=== PATIENT | male | born 1955 | race Caucasian/White ===

== ENCOUNTER 2018-09-19 12:01 | Inpatient (IN) ==
[2018-09-19] MEDS ORDERED: NS 1,000 ML ONE (12:05)
[2018-09-19 12:07] LABS: ALLEN TEST NO; BE -10.1 mmoll (-3.0-3.0); BLOOD TYPE ARTERIAL; METHB 1.2 % (0.0-1.5); O2HB 95.3 % (95.0-99.0); PCO2(98.6) 40 mmHg (35-45); PO2(98.6) 114 mmHg (60-100); SAMPLE BLOOD; SAO2 98.8 % (95.0-100.0); THB 10.3 g/dL (11.5-17.4); pH(98.6) 7.23 (7.35-7.45)
[2018-09-19 12:08] LABS: MODALITY NRB
[2018-09-19] MEDS ORDERED: LR 1,000 ML ONE (12:09)
[2018-09-19] MEDS ORDERED: LR 1,000 ML IV ONE (12:11)
[2018-09-19] MEDS ORDERED: NS 1,000 ML IV ONE ×2 (12:13→15:18)
[2018-09-19] MEDS ORDERED: SODIUM BICARBONATE 8.4% IV ONE (12:13)
[2018-09-19] MEDS ORDERED: SODIUM CHLORIDE 0.9% INJ ONE ×2 (12:14→15:57)
[2018-09-19] MEDS ORDERED: SOLU-MEDROL IV ONE (12:14)
[2018-09-19] MEDS ORDERED: PROTONIX IV ONE ×2 (12:14→15:57)
[2018-09-19] MEDS ORDERED: ZOFRAN IV ONE (12:14)
[2018-09-19] MEDS ORDERED: ROCEPHIN 1 GM in NS 50 ML IV ONE (12:14)
[2018-09-19 12:39] LABS: INR 0.99; PROTIME 13.9 Seconds (11.0-16.0)
[2018-09-19 12:41] LABS: BASO# 0.01 X1000 (0.0-0.2); BASO% 0.2 % (0.0-0.8); HEMATOCRIT 32.1 % (42.0-52.0); HEMOGLOBIN 10.1 g/dL (14.0-18.0); IMM GRAN# 0.03 X1000 (0.0-0.04); IMM GRAN% 0.5 % (0.0-0.5); LYMPH# 1.15 X1000 (1.2-3.4); LYMPH% 19.9 % (20.5-51.1); MCH 32.1 PG (27-31); MCHC 31.5 g/dL (33-37); MCV 101.9 FL (81-99); MONO# 0.63 X1000 (0.11-0.59); MONO% 10.9 % (1.7-9.3); MPV 9.5 FL (7.4-10.4); NEUT# 3.95 X1000 (1.4-6.5); NEUT% 68.5 % (42.2-75.2); PLT 314 X1000 (130-400); RBC 3.15 XMIL (4.7-6.1); RDW 15.2 % (11.5-14.5); WBC 5.77 X1000 (4.8-10.8)
[2018-09-19 12:58] LABS: ALB/GLOB RATIO 0.5; ALBUMIN 2.4 g/dL (3.5-5.0); CALCIUM 9.6 mg/dL (8.8-10.2); CREATININE 3.2 mg/dL (0.7-1.2); POTASSIUM 4.4 mmol/L (3.5-5.1); TOTAL BILIRUBIN 1.09 mg/dL (0.20-1.00); TOTAL PROTEIN 6.8 g/dL (6.3-8.3)
[2018-09-19 13:17] LABS: MAGNESIUM 7.6 mg/dL (1.5-2.7)
[2018-09-19] MEDS ORDERED: QUELICIN IV ONE (13:27)
[2018-09-19] MEDS ORDERED: AMIDATE IV ONE (13:27)
[2018-09-19] MEDS ORDERED: QUELICIN ONE (13:30)
[2018-09-19] MEDS ORDERED: AMIDATE ONE (13:30)
[2018-09-19] MEDS: LEVOPHED 8 MG in D5 1/2 NS 250 ML IV SCH ×3 (13:47→22:56)
[2018-09-19 13:49] LABS: URINE SOURCE CLEAN CATCH
[2018-09-19 13:52] LABS: BILIRUBIN URINE NEGATIVE (NEGATIVE); BLOOD URINE TRACE (NEGATIVE); COLOR YELLOW; GLUCOSE URINE NEGATIVE (NEGATIVE); KETONE URINE NEGATIVE (NEGATIVE); LEUKOCYTES URINE NEGATIVE (NEGATIVE); NITRITE URINE NEGATIVE (NEGATIVE); PH URINE 5.5; PROTEIN URINE TRACE mg/dL (NEGATIVE); SP GRAVITY URINE 1.018; TURBIDITY URINE CLEAR (CLEAR); UR EPITHELIAL CELLS <10 /HPF (<10); URINE BACTERIA NEGATIVE /HPF; URINE RBC <10 /HPF (<10); URINE WBC <10 /HPF (<10); UROBILINOGEN URINE 3 mg/dL (NORMAL)
--- NOTE | 2018-09-19 13:59 | EKG Report ---
Test Performed on : 09/19/2018 12:02:14 PM Test Reason : SPEPTIC Blood Pressure : / mmHG Vent. Rate : 093 BPM Atrial Rate : 093 BPM P-R Int : 166 ms QRS Dur : 102 ms QT Int : 372 ms P-R-T Axes : 038 026 041 degrees QTc Int : 462 ms Normal sinus rhythm. Normal ECG No previous ECGs available Unconfirmed Result
[2018-09-19] MEDS ORDERED: BENADRYL PO ONE (14:04)
--- NOTE | 2018-09-19 14:10 | Diag Imaging Result Doc PS360 ---
EXAM: CHEST/ABD TUBE PLACEMENT INDICATION: post intubation TECHNIQUE: One view COMPARISON: None. FINDINGS: The newly placed NG tube projects well below the diaphragm and is assumed to be in the lumen of the stomach in expected position. And ET tube is also identified. The tip projects over the trachea and above the deloris at about the T4 level. The lungs are overexposed due to focus on the NG tube. There are a few moderately gas-distended loops of colon noted. IMPRESSION: NG tube and ET tube in expected position as described. Electronically signed by Matt Gonzales 09/19/2018 2:08 PM
[2018-09-19 14:12] LABS: UR AMPHETAMINES QUAL PRESUMPTIVE POSITIVE (NONE DETECT); UR BARBITUATES QUAL NONE DETECTED (NONE DETECT); UR BENZODIAZEPIN QUAL NONE DETECTED (NONE DETECT); UR CANNABINOIDS QUAL PRESUMPTIVE POSITIVE (NONE DETECT); UR COCAINE QUAL NONE DETECTED (NONE DETECT); UR METHADONE QUAL NONE DETECTED (NONE DETECT); UR OPIATES QUAL PRESUMPTIVE POSITIVE (NONE DETECT); UR OXYCODONE QUAL NONE DETECTED (NONE DETECT); UR PCP QUAL NONE DETECTED (NONE DETECT)
[2018-09-19] MEDS ORDERED: SODIUM BICARBONATE 8.4% IV PUSH ONE (14:13)
[2018-09-19] MEDS ORDERED: BENADRYL IV ONE (14:54)
[2018-09-19] MEDS: NEO-SYNEPHRINE 50 MG in NS 250 ML IV SCH ×3 (15:16→22:56)
[2018-09-19] MEDS ORDERED: ATIVAN ONE (15:38)
[2018-09-19] MEDS ORDERED: ATIVAN IV ONE ×2 (15:57→17:42)
[2018-09-19] MEDS ORDERED: PITRESSIN 40 UNIT in NS 100 ML IV SCH (16:00)
[2018-09-19] MEDS ORDERED: PROTONIX 80 MG in NS 80 ML IV SCH (16:00)
--- NOTE | 2018-09-19 16:13 | Diag Imaging Result Doc PS360 ---
CHEST-PORTABLE - 09/19/2018 3:57 PM INDICATION: CVC placement COMPARISON: 1:59 PM FINDINGS: There is a new left subclavian central line in good position with the catheter tip at the confluence of the brachiocephalic veins. Stable endotracheal tube and nasogastric tube in good position. No new infiltrates. No pneumothorax or significant pleural effusion. IMPRESSION: No competition from support line or tube placement. Electronically signed by Jonnathan Ruffin 09/19/2018 4:11 PM
[2018-09-19] MEDS ORDERED: NS 250 ML ONE ×2 (17:20→17:25)
--- NOTE | 2018-09-19 17:44 | PROVIDER DOCUMENTATION ---
This chart was entered by Yanni Benitez Scribe, acting as scribe for Ronen Lopez MD. HPI-Critical Care - General Chief Complaint: Altered Mental Status Stated Complaint: UNRESPONSIVE Time Seen by Provider: 09/19/18 12:07 Patient arrived via EMS?: Yes Source: patient, family, EMS Unable to obtain history due to:: altered Allergies/Adverse Reactions: Allergies Allergy/AdvReac Type Severity Reaction Status Date / Time Unable to Assess Allergy Verified 09/19/18 13:30 - History of Present Illness-Critical Care Nature of Presenting Problem: per ems pt son called 911 due to pt being altered. pt had a large bottle of opened whiskey in his lap but family did not see him drink any. pt does have a s gómez smell of alcohol and feces about him. ems sts while on scenec speaking to pt he went unresponsive. pt has IO placed in RUE and NS was hung. pt has BGL 114. pt was incontinent of feces in a large amount. pt is unkempt. pt was placed on a nonrebreather @ 15LPM and o@ sat 87%. pt will moan with stimulated but does not answer questions. ems sts BP while enroute to hosp 58/38 98/58 42/30 pt when brought to ed was mildly responsive to pain and moans with palpation of abdomen. pt has BP 39/30 and is tachy 106 Location of Pain/Injury: reports: abdomen Quality of Pain: reports: fullness, sharp Severity in ED: reports: moderate Onset/Duration: reports: this morning Timing: reports: still present EMS Initial Findings:: confused, decreased respirations Pre-hospital Treatment: Initiated oxygen, Initiated BVM Associated Symptoms: reports: diarrhea, shortness of breath Loss of Consciousness: prolonged (minutes) Improves Condition (Modifying Factors): improves with: nothing Nitro Today/Relief: no nitro taken today Aspirin Treatment Today: no aspirin today Similar Symptoms Previously?: No Recently Seen Here or By Another Healthcare Provider: No Review of Systems - Adult - REVIEW OF SYSTEMS - ADULT ROS:: limited per condition Constitutional: denies: chills, fever Eyes: reports: no symptoms reported Ears, Nose, Mouth & Throat: reports: no symptoms reported Cardiovascular: denies: chest pain, palpitations Respiratory: denies: cough, shortness of breath, wheezing Gastrointestinal: reports: see HPI, abdominal pain, diarrhea Genitourinary: reports: see HPI, incontinence (fecal) Musculoskeletal: reports: no symptoms reported Integumentary: reports: no symptoms reported Neurological: reports: see HPI, other (moaning). denies: dizziness/vertigo, headache/migraines Psychiatric: reports: no symptoms reported Endocrine: reports: no symptoms reported Hematologic/Lymphatic: reports: no symptoms reported Allergic/Immunologic: reports: no symptoms reported All Other Systems: Reviewed and Negative Past History - Adult - PAST MEDICAL HISTORY-ADULT Review of Records: reports: Old Records Reviewed, Nursing Assessment Review, Medications Reviewed, Social history reviewed & non-contributory. Major Childhood Illnesses: reports: denies history Cardiovascular: reports: HTN Respiratory: reports: denies history Gastrointestinal: reports: denies history Genitourinary: reports: denies history Musculoskeletal: reports: denies history Hand Dominance: Right Handed Neurological: reports: denies history Endocrine/Immune: reports: denies history Other Conditions: reports: denies history - PRIOR SURGERIES/PROCEDURES Surgical/Procedure History: reports: reviewed, not pertinent - IMMUNIZATION STATUS Childhood Immunizations: See Nurse Assessment Flu Vaccine: See Nurse Assessment - FAMILY HISTORY Family History: reviewed, not pertinent - SOCIAL HISTORY Smoking: denies Substance Use: alcohol Alcohol Use Frequency: 5-6 times a week Living Situation: family Physical Exam-General - PHYSICAL EXAM-ADULT Initial Vital Signs Reviewed: Yes - CONSTITUTIONAL General Appearance: obese, slow to respond, obtunded - EYES Eyes: PERRL/EOMI. negative: pink conjunctivae - HEAD, EARS, NOSE, MOUTH & THROAT HENMT: negative: moist mucous membranes (dry) - NECK Neck: full range of motion, normal inspection - RESPIRATORY Respiratory: normal breath sounds - CARDIOVASCULAR Cardiovascular: normal peripheral pulses - GASTROINTESTINAL (ABDOMEN) Abdominal Exam: soft, distended, tenderness (moans with palpation) - LYMPHATIC Lymphatic: no adenopathy - MUSCULOSKELETAL Extremity: pelvis stable, other (IO @ rue bilateral 20 IV in hands) - SKIN Integumentary: warm/dry, pallor - PSYCHIATRIC Psych/Mental Status: other (confused and moans) Progress - PLAN OF CARE/RESULTS Progress/Plan/Lab Results: Vital Signs - 8 hr 09/19/18 12:06 09/19/18 12:20 09/19/18 12:28 Temperature 98.9 F Pulse Rate 95 H 99 H 98 H Respiratory Rate 13 22 29 H Blood Pressure 39/30 56/32 48/31 O2 Sat by Pulse Oximetry 93 L 94 L 92 L 09/19/18 12:38 09/19/18 12:42 09/19/18 12:47 Temperature Pulse Rate 93 H 93 H 89 Respiratory Rate 26 H 18 24 Blood Pressure 58/35 57/34 54/33 O2 Sat by Pulse Oximetry 90 L 09/19/18 12:52 09/19/18 12:57 09/19/18 12:58 Temperature Pulse Rate 86 84 82 Respiratory Rate 21 24 25 H Blood Pressure 57/30 62/34 O2 Sat by Pulse Oximetry 09/19/18 13:00 09/19/18 13:07 09/19/18 13:10 Temperature Pulse Rate 81 78 75 Respiratory Rate 24 22 20 Blood Pressure 58/34 O2 Sat by Pulse Oximetry 09/19/18 13:12 09/19/18 13:17 09/19/18 13:20 Temperature Pulse Rate 75 73 73 Respiratory Rate 20 20 14 Blood Pressure 56/35 57/34 O2 Sat by Pulse Oximetry 09/19/18 13:22 09/19/18 13:27 09/19/18 13:30 Temperature Pulse Rate 71 68 66 Respiratory Rate 20 19 19 Blood Pressure 57/34 54/32 O2 Sat by Pulse Oximetry 74 L 74 L 84 L 09/19/18 13:32 09/19/18 13:35 09/19/18 13:36 Temperature Pulse Rate 71 74 82 Respiratory Rate 17 21 19 Blood Pressure 61/35 51/35 58/36 O2 Sat by Pulse Oximetry 83 L 100 09/19/18 13:38 09/19/18 13:40 09/19/18 13:42 Temperature Pulse Rate 84 90 92 H Respiratory Rate 19 9 L 30 H Blood Pressure 54/36 62/38 63/38 O2 Sat by Pulse Oximetry 94 L 100 96 09/19/18 13:44 09/19/18 13:45 09/19/18 13:46 Temperature Pulse Rate 91 H 80 88 Respiratory Rate 12 Blood Pressure 61/40 58/39 O2 Sat by Pulse Oximetry 97 98 09/19/18 13:50 09/19/18 13:52 09/19/18 13:57 Temperature Pulse Rate 89 90 90 Respiratory Rate Blood Pressure 65/42 70/44 O2 Sat by Pulse Oximetry 96 96 94 L 09/19/18 14:02 09/19/18 14:04 09/19/18 14:07 Temperature Pulse Rate 89 90 91 H Respiratory Rate Blood Pressure 68/42 68/43 65/40 O2 Sat by Pulse Oximetry 92 L 94 L 94 L 09/19/18 14:10 09/19/18 14:12 09/19/18 14:17 Temperature Pulse Rate 92 H 92 H 93 H Respiratory Rate 27 H 19 21 Blood Pressure 70/44 71/44 O2 Sat by Pulse Oximetry 94 L 94 L 96 09/19/18 14:20 09/19/18 14:21 09/19/18 14:22 Temperature Pulse Rate 94 H 93 H 94 H Respiratory Rate 26 H 26 H 24 Blood Pressure 72/46 68/50 O2 Sat by Pulse Oximetry 94 L 96 96 09/19/18 14:27 09/19/18 14:30 09/19/18 14:33 Temperature Pulse Rate 92 H 93 H 95 H Respiratory Rate 29 H 26 H 25 H Blood Pressure 69/44 78/48 O2 Sat by Pulse Oximetry 96 94 L 93 L 09/19/18 14:37 09/19/18 14:38 09/19/18 14:40 Temperature Pulse Rate 94 H 94 H 95 H Respiratory Rate 27 H 28 H 24 Blood Pressure 72/50 71/44 O2 Sat by Pulse Oximetry 93 L 94 L 94 L 09/19/18 14:42 09/19/18 14:43 09/19/18 14:47 Temperature Pulse Rate 95 H 93 H 95 H Respiratory Rate 26 H 27 H 30 H Blood Pressure 72/45 72/52 O2 Sat by Pulse Oximetry 89 L 96 94 L 09/19/18 14:50 09/19/18 14:52 09/19/18 14:53 Temperature Pulse Rate 96 H 96 H 96 H Respiratory Rate 27 H 27 H 28 H Blood Pressure 81/51 O2 Sat by Pulse Oximetry 94 L 94 L 93 L 09/19/18 14:57 09/19/18 15:00 09/19/18 15:02 Temperature Pulse Rate 98 H 97 H 97 H Respiratory Rate 27 H 26 H 27 H Blood Pressure 81/51 77/46 O2 Sat by Pulse Oximetry 93 L 96 97 09/19/18 15:03 09/19/18 15:07 09/19/18 15:09 Temperature Pulse Rate 96 H 98 H 97 H Respiratory Rate 28 H 23 26 H Blood Pressure 70/58 80/49 O2 Sat by Pulse Oximetry 96 95 96 09/19/18 15:11 09/19/18 15:12 09/19/18 15:17 Temperature Pulse Rate 98 H 97 H 98 H Respiratory Rate 26 H 26 H 26 H Blood Pressure 73/48 66/53 O2 Sat by Pulse Oximetry 94 L 94 L 83 L 09/19/18 15:20 09/19/18 15:22 09/19/18 15:23 Temperature Pulse Rate 96 H 96 H 96 H Respiratory Rate 26 H 27 H 26 H Blood Pressure 71/48 O2 Sat by Pulse Oximetry 94 L 95 93 L 09/19/18 15:27 09/19/18 15:28 09/19/18 15:30 Temperature Pulse Rate 97 H 97 H 98 H Respiratory Rate 26 H 26 H 33 H Blood Pressure 84/55 83/48 O2 Sat by Pulse Oximetry 94 L 94 L 96 09/19/18 15:32 09/19/18 15:33 09/19/18 15:37 Temperature Pulse Rate 99 H 99 H 100 H Respiratory Rate 27 H 26 H 36 H Blood Pressure 77/49 70/42 75/53 O2 Sat by Pulse Oximetry 94 L 94 L 09/19/18 15:40 09/19/18 15:41 09/19/18 15:42 Temperature Pulse Rate 100 H 100 H 100 H Respiratory Rate 14 14 16 Blood Pressure 72/55 79/50 O2 Sat by Pulse Oximetry 77 L 09/19/18 15:47 09/19/18 15:50 09/19/18 15:52 Temperature Pulse Rate 101 H 101 H 101 H Respiratory Rate 15 18 15 Blood Pressure 83/61 77/52 O2 Sat by Pulse Oximetry 80 L 85 L 09/19/18 15:53 09/19/18 15:57 09/19/18 16:00 Temperature Pulse Rate 102 H 101 H 101 H Respiratory Rate 16 16 24 Blood Pressure 61/48 O2 Sat by Pulse Oximetry 91 L 09/19/18 16:02 09/19/18 16:03 09/19/18 16:07 Temperature Pulse Rate 99 H 99 H 103 H Respiratory Rate 18 17 24 Blood Pressure 64/44 77/46 O2 Sat by Pulse Oximetry 09/19/18 16:10 09/19/18 16:12 09/19/18 16:17 Temperature Pulse Rate 103 H 103 H 102 H Respiratory Rate 21 16 19 Blood Pressure 77/48 76/62 O2 Sat by Pulse Oximetry 95 09/19/18 16:20 09/19/18 16:22 09/19/18 16:27 Temperature Pulse Rate 110 H 110 H 109 H Respiratory Rate 27 H 26 H 24 Blood Pressure 66/49 73/49 O2 Sat by Pulse Oximetry 96 95 09/19/18 16:30 09/19/18 16:32 09/19/18 16:37 Temperature Pulse Rate 107 H 107 H 105 H Respiratory Rate 19 23 22 Blood Pressure 67/55 76/52 O2 Sat by Pulse Oximetry 94 L 94 L Laboratory Results - last 24 hr 09/19/18 09/19/18 09/19/18 11:48 11:58 11:58 WBC 5.77 RBC 3.15 L Hgb 10.1 L Hct 32.1 L MCV 101.9 H MCH 32.1 H MCHC 31.5 L RDW Std Deviation 15.2 H Plt Count 314 MPV 9.5 Immature Gran % (Auto) 0.5 Neut % (Auto) 68.5 Lymph % (Auto) 19.9 L Schleicher % (Auto) 10.9 H Eos % (Auto) 0.0 Baso % (Auto) 0.2 Immature Gran # (Auto) 0.03 Neut # (Auto) 3.95 Lymph # (Auto) 1.15 L Schleicher # (Auto) 0.63 H Eos # (Auto) 0.00 Baso # (Auto) 0.01 PT INR PTT (Actin FS) Specimen Type ARTERIAL Sample Site L BRACHIAL pH 7.23 L pCO2 40 pO2 114 H HCO3 17.0 L Base Excess -10.1 L Oxyhemoglobin 95.3 ABG O2 Sat (Calculated) 14.0 L ABG O2 Saturation 98.8 ABG Carboxyhemoglobin 2.40 ABG Methemoglobin 1.2 Jose A Test NO A-a O2 Difference 549.0 Total Hemoglobin 10.3 L Lactate 10.80 H* Blood Gas Modality NRB FiO2 % 100.0 Sodium Potassium Chloride Carbon Dioxide Anion Gap BUN Creatinine Estimated GFR/1.73 m2 BUN/Creatinine Ratio Glucose Calculated Osmolality Calcium Magnesium Total Bilirubin AST ALT Alkaline Phosphatase Ammonia Troponin T 0.035 Total Protein Albumin Globulin Albumin/Globulin Ratio Plasma Lactate Urine Source Urine Color Urine Turbidity Urine pH Ur Specific [place] Urine Protein Ur Glucose (Stick) Ur Ketones (Stick) Urine Blood Urine Nitrite Urine Bilirubin Urobilinogen Dipstick Urine Leukocytes Urine WBC (Auto) Urine RBC (Auto) U Epithel Cells (Auto) Urine Bacteria (Auto) Urine Opiates Screen Ur Oxycodone Screen Ur Methadone, Qual Ur Barbiturates Screen Ur Phencyclidine Scrn Ur Amphetamines Screen U Benzodiazepines Scrn Urine Cocaine Screen U Cannabinoids Screen Blood Type Antibody Screen Crossmatch 09/19/18 09/19/18 09/19/18 11:58 11:58 11:58 WBC RBC Hgb Hct MCV MCH MCHC RDW Std Deviation Plt Count MPV Immature Gran % (Auto) Neut % (Auto) Lymph % (Auto) Schleicher % (Auto) Eos % (Auto) Baso % (Auto) Immature Gran # (Auto) Neut # (Auto) Lymph # (Auto) Schleicher # (Auto) Eos # (Auto) Baso # (Auto) PT 13.9 INR 0.99 PTT (Actin FS) 30.0 Specimen Type Sample Site pH pCO2 pO2 HCO3 Base Excess Oxyhemoglobin ABG O2 Sat (Calculated) ABG O2 Saturation ABG Carboxyhemoglobin ABG Methemoglobin Jose A Test A-a O2 Difference Total Hemoglobin Lactate Blood Gas Modality FiO2 % Sodium 130 L Potassium 4.4 Chloride 84 L Carbon Dioxide 17 L Anion Gap 29 BUN 47 H Creatinine 3.2 H Estimated GFR/1.73 m2 20 BUN/Creatinine Ratio 15 Glucose 92 Calculated Osmolality 273 Calcium 9.6 Magnesium 7.6 H Total Bilirubin 1.09 H AST 110 H ALT 55 H Alkaline Phosphatase 405 H Ammonia Troponin T Total Protein 6.8 Albumin 2.4 L Globulin 4.4 Albumin/Globulin Ratio 0.5 Plasma Lactate 11.6 H Urine Source Urine Color Urine Turbidity Urine pH Ur Specific [place] Urine Protein Ur Glucose (Stick) Ur Ketones (Stick) Urine Blood Urine Nitrite Urine Bilirubin Urobilinogen Dipstick Urine Leukocytes Urine WBC (Auto) Urine RBC (Auto) U Epithel Cells (Auto) Urine Bacteria (Auto) Urine Opiates Screen Ur Oxycodone Screen Ur Methadone, Qual Ur Barbiturates Screen Ur Phencyclidine Scrn Ur Amphetamines Screen U Benzodiazepines Scrn Urine Cocaine Screen U Cannabinoids Screen Blood Type Antibody Screen Crossmatch 09/19/18 09/19/18 09/19/18 11:58 12:45 12:45 WBC RBC Hgb Hct MCV MCH MCHC RDW Std Deviation Plt Count MPV Immature Gran % (Auto) Neut % (Auto) Lymph % (Auto) Schleicher % (Auto) Eos % (Auto) Baso % (Auto) Immature Gran # (Auto) Neut # (Auto) Lymph # (Auto) Schleicher # (Auto) Eos # (Auto) Baso # (Auto) PT INR PTT (Actin FS) Specimen Type Sample Site pH pCO2 pO2 HCO3 Base Excess Oxyhemoglobin ABG O2 Sat (Calculated) ABG O2 Saturation ABG Carboxyhemoglobin ABG Methemoglobin Jose A Test A-a O2 Difference Total Hemoglobin Lactate Blood Gas Modality FiO2 % Sodium Potassium Chloride Carbon Dioxide Anion Gap BUN Creatinine Estimated GFR/1.73 m2 BUN/Creatinine Ratio Glucose Calculated Osmolality Calcium Magnesium Total Bilirubin AST ALT Alkaline Phosphatase Ammonia Troponin T Total Protein Albumin Globulin Albumin/Globulin Ratio Plasma Lactate Urine Source CLEAN CATCH Urine Color YELLOW Urine Turbidity CLEAR Urine pH 5.5 Ur Specific [place] 1.018 Urine Protein TRACE A Ur Glucose (Stick) NEGATIVE Ur Ketones (Stick) NEGATIVE Urine Blood TRACE A Urine Nitrite NEGATIVE Urine Bilirubin NEGATIVE Urobilinogen Dipstick 3 A Urine Leukocytes NEGATIVE Urine WBC (Auto) <10 Urine RBC (Auto) <10 U Epithel Cells (Auto) <10 Urine Bacteria (Auto) NEGATIVE Urine Opiates Screen PRESUMPTIVE POSITIVE A Ur Oxycodone Screen NONE DETECTED Ur Methadone, Qual NONE DETECTED Ur Barbiturates Screen NONE DETECTED Ur Phencyclidine Scrn NONE DETECTED Ur Amphetamines Screen PRESUMPTIVE POSITIVE A U Benzodiazepines Scrn NONE DETECTED Urine Cocaine Screen NONE DETECTED U Cannabinoids Screen PRESUMPTIVE POSITIVE A Blood Type B POSITIVE Antibody Screen NEGATIVE Crossmatch See Detail 09/19/18 09/19/18 09/19/18 14:40 14:40 16:40 WBC RBC Hgb Hct MCV MCH MCHC RDW Std Deviation Plt Count MPV Immature Gran % (Auto) Neut % (Auto) Lymph % (Auto) Schleicher % (Auto) Eos % (Auto) Baso % (Auto) Immature Gran # (Auto) Neut # (Auto) Lymph # (Auto) Schleicher # (Auto) Eos # (Auto) Baso # (Auto) PT INR PTT (Actin FS) Specimen Type Sample Site pH pCO2 pO2 HCO3 Base Excess Oxyhemoglobin ABG O2 Sat (Calculated) ABG O2 Saturation ABG Carboxyhemoglobin ABG Methemoglobin Jose A Test A-a O2 Difference Total Hemoglobin Lactate Blood Gas Modality FiO2 % Sodium Potassium Chloride Carbon Dioxide Anion Gap BUN Creatinine Estimated GFR/1.73 m2 BUN/Creatinine Ratio Glucose Calculated Osmolality Calcium Magnesium 1.1 L Total Bilirubin AST ALT Alkaline Phosphatase Ammonia 55 Troponin T Total Protein Albumin Globulin Albumin/Globulin Ratio Plasma Lactate 11.4 H Urine Source Urine Color Urine Turbidity Urine pH Ur Specific [place] Urine Protein Ur Glucose (Stick) Ur Ketones (Stick) Urine Blood Urine Nitrite Urine Bilirubin Urobilinogen Dipstick Urine Leukocytes Urine WBC (Auto) Urine RBC (Auto) U Epithel Cells (Auto) Urine Bacteria (Auto) Urine Opiates Screen Ur Oxycodone Screen Ur Methadone, Qual Ur Barbiturates Screen Ur Phencyclidine Scrn Ur Amphetamines Screen U Benzodiazepines Scrn Urine Cocaine Screen U Cannabinoids Screen Blood Type Antibody Screen Crossmatch Orders Category Date Time Status Finger Stick Blood Sugar (ED) DIRECTED Care 09/19/18 12:10 Active Velasquez Cath Insertion ORDERED Care 09/19/18 12:13 Active Restraint Initiate NonViolent ONCE Care 09/19/18 12:17 Active Saline Loc NOW Care 09/19/18 12:11 Active Transfuse .Give-Transfuse Care 09/19/18 14:04 Active MD [Physician/Provider Consults] Stat Cons 09/19/18 16:19 Ordered MD [Physician/Provider Consults] Stat Cons 09/19/18 16:25 Ordered MD [Physician/Provider Consults] Stat Cons 09/19/18 16:43 Ordered CHEST-PORTABLE [RAD] Stat Exams 09/19/18 15:47 Completed CHEST/ABD TUBE PLACEMENT [RAD] Stat Exams 09/19/18 13:[address] ABDOMEN/PELVIS W/O CONTRAST [CT] Stat Exams 09/19/18 13:[address] HEAD W/O CONTRAST [CT] Stat Exams 09/19/18 13:18 Ordered ABG [RESP] Routine Lab 09/19/18 11:48 Completed ALCOHOL BLOOD Stat Lab 09/19/18 16:55 Uncollected AMMONIA [CHEM] Stat Lab 09/19/18 14:40 Completed BLOOD CULTURE [BLDCUL] Stat Lab 09/19/18 14:40 Results CBC WITH ELECTRONIC DIFF [HEME] Stat Lab 09/19/18 11:58 Completed COMPREHENSIVE METABOLIC PANEL [CHEM] Stat Lab 09/19/18 11:58 Completed LACTATE, PLASMA [CHEM] Stat Lab 09/19/18 11:58 Completed LACTATE, PLASMA [CHEM] Stat Lab 09/19/18 14:40 Completed LRPC (RED CELLS) [BBK] Stat Lab 09/19/18 11:58 Results MAGNESIUM [CHEM] Stat Lab 09/19/18 11:58 Completed MAGNESIUM [CHEM] Stat Lab 09/19/18 16:40 Completed PROTIME WITH INR [COAG] Stat Lab 09/19/18 11:58 Completed PTT [COAG] Stat Lab 09/19/18 11:58 Completed TROPONIN T Stat Lab 09/19/18 11:58 Completed TYPE & SCREEN [BBK] Stat Lab 09/19/18 11:58 Results URINALYSIS W/POSS RFLX CULT [URINALYSIS] Stat Lab 09/19/18 12:45 Completed URINE DRUG SCREEN Stat Lab 09/19/18 12:45 Completed 0.9% Sodium Chloride Inj [Ns] 1,000 ml Med 09/19/18 12:13 Discontinued IV 999 mls/hr 0.9% Sodium Chloride Inj [Ns] 1,000 ml Med 09/19/18 15:18 Discontinued IV 999 mls/hr 0.9% Sodium Chloride Inj [Ns] 100 ml Med 09/19/18 16:00 Active Vasopressin [Pitressin] 40 unit IV As Directed mls/hr 0.9% Sodium Chloride Inj [Ns] 250 ml Med 09/19/18 14:15 Active Phenylephrine [Juan-Synephrine] 50 mg IV As Directed mls/hr 0.9% Sodium Chloride Inj [Ns] 80 ml Med 09/19/18 16:00 Active Pantoprazole [Protonix] 80 mg IV 10 mls/hr CefTRIAXONE [Rocephin] 1 gm Med 09/19/18 12:14 Discontinued 0.9% Sodium Chloride Inj [Ns] 50 ml IV NOW Dextrose 5%-0.45% NaCl Inj [D5 1/2 Ns] 250 ml Med 09/19/18 13:30 Active Norepinephrine [Levophed] 8 mg IV As Directed mls/hr Diphenhydramine [Benadryl] Med 09/19/18 14:54 Discontinued 25 mg IV NOW ONE Diphenhydramine [Benadryl] Med 09/19/18 14:04 Discontinued 25 mg PO PREMED ONE Etomidate [Amidate] Med 09/19/18 13:27 Discontinued 20 mg IV NOW ONE Etomidate [Amidate] Med 09/19/18 13:30 Discontinued 40 mg .ROUTE .STK-MED ONE Lactated Ringers Inj [Lr] 1,000 ml Med 09/19/18 12:11 Discontinued IV 999 mls/hr Lorazepam [Ativan] Med 09/19/18 15:57 Discontinued 1 mg IV NOW ONE Lorazepam [Ativan] Med 09/19/18 15:38 Discontinued 2 mg .ROUTE .STK-MED ONE Methylprednisolone Sod Succ [Solu-Medrol] Med 09/19/18 12:14 Discontinued 125 mg IV NOW ONE Ondansetron [Zofran] Med 09/19/18 12:14 Discontinued 4 mg IV NOW ONE Pantoprazole [Protonix] Med 09/19/18 12:14 Discontinued 40 mg IV NOW ONE Pantoprazole [Protonix] Med 09/19/18 15:57 Discontinued 40 mg IV NOW ONE Sodium Bicarbonate 8.4% Med 09/19/18 14:13 Discontinued 50 meq IV PUSH NOW ONE Sodium Chloride 0.9% Med 09/19/18 12:14 Discontinued 10 ml INJ NOW ONE Sodium Chloride 0.9% Med 09/19/18 15:57 Discontinued 10 ml INJ NOW ONE Succinylcholine [Quelicin] Med 09/19/18 13:27 Discontinued 100 mg IV NOW ONE Succinylcholine [Quelicin] Med 09/19/18 13:30 Discontinued 200 mg .ROUTE .STK-MED ONE EKG [EKG] Stat Ther 09/19/18 12:10 Draft Transfer/Admit Order [TRANSFER] Routine Transfer 09/19/18 16:17 Ordered Result Diagrams: 09/19/18 11:58 09/19/18 11:58 - REASSESSMENT Reassessment #1 Time Reassessed: 12:42 (stysolic 58 pressure) Status: improving Reassessment #2 Time Reassessed: 13:26 (dr lopez at bedside) Status: unchanged Reassessment #3 Time Reassessed: 13:37 (O2 @ 83% on nonrebreather 15LPM BP 54/32 ) Status: unchanged Reassessment #4 Time Reassessed: 13:51 (dr lopez at bedside spweaking with both sons about poc) Status: improving Reassessment #5 Time Reassessed: 15:59 Status: improving (7 F TRIPLE LUMEN TO RIGHT SUBCLAVIAN W/O COMPLICATION) - EKG 1 Time of EKG reading by physician:: 12:02 EKG Read and Signed by:: Ronen Lopez EKG Interpretation (*Must complete 3 of following elements*): Normal Rate: 93 Rhythm: nsr [place]: normal QRS: normal MT Interval: normal ST Wave: normal Prior EKG Comparison: no prior EKG - XRAY 1 XRAY Study: other (EXAM: CHEST/ABD TUBE PLACEMENT INDICATION: post intubation TECHNIQUE: One view COMPARISON: None. FINDINGS: The newly placed NG tube projects well below the diaphragm and is assumed to be in the lumen of the stomach in expected position. And ET tube is also identified. The tip projects over the trachea and above the deloris at about the T4 level. The lungs are overexposed due to focus on the NG tube. There are a few moderately gas- distended loops of colon noted. IMPRESSION: NG tube and ET tube in expected position as described. Electronically signed by Matt Gonzales 09/19/2018 2:08 PM 09/19/18 1408 Interpreting Physician: Matt Gonzales MD Dictated Date/Time: 09/19/18 1406 cc: Ronen Lopez MD; None,PCP) - CONSULTS/PCP/HOSPITALIST Notification #1 *Consult/PCP/Hospitalist*: OMLLY MARTINEZ Time Discussed: 15:09 (AVAILABLE TO CONSULT NEEDED) #2 Consult: MEGHA ACCEPTS ADMIT TO DR PARSON Time Discussed: 15:30 Consult Disposition: Admit Procedures - CENTRAL LINE Consent Form Signed?: No (intubated) Time-Out Verification Completed?: Yes Central Line Lumen: triple Catheter: [place]: 7 Central Line Procedure Prep: Hand Hygeine Performed, Kit Utilized, Chloraprep, Betadine, Sterile Body Drape Placed, Antibiotic-coated Catheter Used Patient Position (To prevent Air Embolism): Trendelenburg (SC/IJ) Central Line Position: subclavian (L) Ultrasound Guided?: Yes Hat, mask, sterile gown, & sterile gloves worn by physician?: Yes Site scrubbed vigorously for 30 seconds? (Groin: 2 min): Yes Anesthetic: 1%, Lidocaine/Xylocaine Volume of Anesthetic (ml's): 5 Post Procedure: Sutured in place, Sterile field maintained, BioPatch placed, Sterile dressing applied, Blood aspirated from each lumen, Placement verfied by XRAY Complications: none - GASTRIC LAVAGE Nasogastric Lavage: Bloody Procedure Comment: NG tube placed without difficulty - INTUBATION Time of Intubation: 13:35 Airway Evaluation: Large tongue, Copious Secretions Mallampati Class: 2 Intubation Method: orotracheal Equipment: ETT Tube Size (cm): 8.0 Pretreated with 100% Oxygen?: Yes Breath Sounds after Intubation: equal ETT Primary Tube Confirmation: Capnometry CO2 Change, Direct Visualization, Chest Rise and Fall, Tube placement verified on XRAY Intubation Complications: no complications Vent Settings: See Respiratory Therapy Notes Departure - Departure Date of Disposition Decision: 09/19/18 Time of Disposition Decision: 15:59 DIAGNOSIS: Hypotension, Upper GI bleeding, Altered mental status, Acute renal insufficiency Disposition: ADMITTED INPATIENT 09 Certified Medical Emergency: Emergent Condition: Serious - Critical Care Note This patient required my direct & personal management of CC.: Yes Total Time (mins): 68 Critical Care Statement: This patient required my direct personal management to treat or rule out processes, the absence of which, could potentiallly result in sudden, clinically significant life or limb threatening deterioration. Attestation - Physician/ HELEN Attestation Patient care was provided by Advanced Practice Provider:: No The physician spent face to face time with patient:: Yes Advanced Practice Provider documentation review:: Supervising physician onsite and consulted in the evaluation and care of this patient. The physician did have a face to face encounter with the patient. This chart was documented by the indicated scribe, (Yanni Benitez Scribe) and accurately reflects the services I performed and decisions made by me, Ronen Lopez MD, as attested by the provider's signature.
--- NOTE | 2018-09-19 17:52 | HISTORY AND PHYSICAL ---
PRIMARY CARE PROVIDER: None. CHIEF COMPLAINT: Per ED report, the patient was found unresponsive by family with a whiskey bottle. HISTORY OF PRESENT ILLNESS: Mr. Sarkar is a 62-year-old male with an unknown past medical history. No family at bedside. Report was taken verbally from ED physician. Per his report, the family has been trying to get Mr. Sarkar to come to the hospital for some time now. They believe he is an alcoholic. He has a pressure ulcer on his bottom from sitting in his easy chair. His family could not convince him to come to the hospital; however, this morning he was found unresponsive by family. EMS was called. He was brought to the ED where he has remained unresponsive. He has since been intubated and had a triple-lumen catheter placed to his left subclavian. He is on Levophed and Juan synephrine drip. When they placed the NG tube, they got a copious amount of what appeared to be upper GI bleed with coffee-ground dark emesis. He was started on Protonix drip. They have spoke with Dr. Denny. He is being transfused with 2 units of PRBCs. We have added a 3rd pressor with vasopressin. His heart rate is still tachycardic. He remains in the 60s on his blood pressure. His pupils are reactive to light; however, he does not follow commands or respond to any painful stimuli. However, he is moving his tongue around the ET tube as well as he will twitch his fingers as well as move his feet just a little, but no purposeful movements. There is no family at the bedside. We will admit him to ICU. He is on multiple vasopressors, as well as a Protonix drip, and we will consult Pulmonology and Nephrology secondary to acute renal failure and hypermagnesium and Dr. Denny with GI. REVIEW OF SYSTEMS: A 14-point review of systems unable to obtain secondary to the patient being obtunded and intubated. See HPI. PAST MEDICAL HISTORY: Alcoholic. PAST SURGICAL HISTORY: Unknown. SOCIAL HISTORY: Unknown. FAMILY HISTORY: Unknown. HOME MEDICATIONS: Unknown. PHYSICAL EXAMINATION: VITAL SIGNS: Temperature was 98.9, heart rate 105, respirations 22, blood pressure 76/52. O2 is 94% on mechanical ventilation. GENERAL: Mr. Sarkar is a 62-year-old man who is lying on the stretcher with soft wrist restraints on. He is intubated. He just had a triple-lumen catheter placed to his left subclavian. He is obtunded. He does move his tongue. He does wiggle his fingers as well as his toes. However, this is unpurposeful movement. This is not on command. He does not respond to any painful stimuli. He is critically ill. HEENT: Atraumatic, normocephalic. JOHNNY. NECK: Supple. Trachea appears to be midline. I could not appreciate any JVD. CARDIOVASCULAR: S1, S2 appreciated. Regular rate and rhythm. He is tachycardic. PULMONARY: Respiratory lung sounds. Rhonchi throughout all lung jara. ABDOMEN: Stomach is obese. Appears to be soft, nontender, hypoactive bowel sounds. LOWER EXTREMITIES: His pedal pulses are still palpable. He does appear to have PVD. No bilateral lower extremity edema. SKIN: Appears to be warm, dry and intact. However, per verbal report, he does have a breakdown on his sacrum from sitting in his easy chair. NEUROLOGIC: Could not assess. The patient is obtunded. No purposeful movements. He does not follow any commands. He does not respond to painful stimuli. DIAGNOSTIC DATA: Head, chest and abdomen CT are all still pending. Patient has been unstable to travel. Chest x-ray shows a left subclavian central line in good position and a stable ET and nasogastric tube in good position. EKG showed a normal sinus rhythm at 93 beats per minute. LABORATORY DATA: White count 5, hemoglobin and hematocrit 10 and 32, platelet count is 314,000. PT 13, INR 0.9. ABGs: pH 7.23, pCO2 40, PO2 114, bicarb 17, base excess -10. O2 was 98% on a non-rebreather. His lactate was 10. Sodium 138, potassium 4.4, chloride 84, carbon dioxide 17, anion gap 29, BUN 47, creatinine 3.2, blood glucose was 92, calcium 9.6, magnesium 7.6, T bilirubin is 1.09, AST 110, ALT 55, alkaline phosphatase 405. Ammonia level is 55. Troponin was 0.035. Albumin 2.4. Plasma lactate was 11.4. Urinalysis was negative for bacteria. His tox screen was positive for opiates, amphetamines and cannabis. ASSESSMENT AND PLAN: 1. Acute respiratory failure likely secondary to possible alcohol as well as Toxic metabolic encephalopathy his tox screen was positive for benzos, amphetamines and cannabinoids. We have been unable to obtain a CT of the abdomen and pelvis or head secondary to his extreme hypotension. We will consult Dr. Anaya with Pulmonology to assist with mechanical ventilation. We will add daily ABGs. 2. Sepsis, unknown source. We will continue with broad-spectrum antibiotics, blood cultures, urine culture, sputum culture have all been obtained. Currently, his chest x-ray does not show any pneumonia. His urinalysis was negative for any growth. We will continue to aggressively IV hydrated him. He is on two vasopressors with Levophed and Juan-Synephrine. We had added vasopressin as well. Pending Head to pelvis CT to rule out other issues. 3. Acute upper GI bleed. He is getting 2 units of packed red blood cells. We will consult GI. We will continue with a Protonix drip. Watch his hemoglobin and hematocrit closely. 4. Acute renal failure versus acute kidney injury on chronic kidney disease. I do not have any history. Again, we will continue with aggressive hydration, consult Nephrology. He has multiple electrolyte abnormalities with acidosis. He was given bicarbonate in the ED. Again, will continue with IV fluids and we will recheck his magnesium. 5. Hypermagnesium. We can continue with aggressive hydration. The patient is already intubated. We will watch his respiratory status as well as his cardiac status closely. We are repeating his magnesium to make sure that it is correct, possibly treating with some calcium gluconate. 6. Hyponatremia. Continue with IV fluids. 7. Transaminitis, possibly secondary to his alcohol abuse. We will check hepatitis profile as well as a right upper quadrant ultrasound. 8. Alcoholism, as well as abuse of opiates, benzodiazepines and cannabis. 9. Disposition: We will place him in the ICU. We will continue to trend cardiac enzymes. Check an echocardiogram. 10. Further recommendations to follow physician evaluation, laboratory data and diagnostic data. TIME SPENT: Critical care time spent 45 minutes. Dictated by MARCIA Bethea for Asher Medrano MD Patient seen and examined. I agree with the assessment and plan of the MARCIA. Dr. Medrano. cc: MD Jazmin Jesus MD Khurshid Yousuf, MD Reginald D. Gladish, MD MTDD
[2018-09-19] MEDS ORDERED: FOLIC ACID 1 MG in NS 50 ML IV SCH (18:15)
[2018-09-19] MEDS ORDERED: THIAMINE 100 MG in NS 50 ML IV SCH (18:15)
--- NOTE | 2018-09-19 18:32 | Diag Imaging Result Doc PS360 ---
EXAM: CT HEAD W/O CONTRAST HISTORY: AMS TECHNIQUE: CT head without contrast COMPARISON: None. FINDINGS: No parenchymal hemorrhage. No epidural or subdural hematoma. No subarachnoid hemorrhage. No mass identified on this noncontrasted exam. No hydrocephalus. There is prominent mucus in each maxillary sinus with a small amount of mucus in the ethmoid and sphenoid sinuses. IMPRESSION: 1.No hemorrhage 2.Sinusitis This exam was performed using automated exposure control, adjustment of mA or kV according to patient size, and/or use of iterative reconstruction technique. Electronically signed by Julian Dasilva 09/19/2018 6:29 PM
--- NOTE | 2018-09-19 18:40 | Diag Imaging Result Doc PS360 ---
EXAM: CT ABDOMEN/PELVIS W/O CONTRAST HISTORY: abdominal distention TECHNIQUE: CT abdomen and pelvis without contrast COMPARISON: None. FINDINGS: There are small bilateral pleural effusions. The one on the left measures 2.7 cm posteriorly and inferiorly in the midline. The one on the right is smaller. There are dense infiltrates in the lower lobes, right greater than left. There is also basilar atelectasis. There is free air throughout the abdomen and pelvis. Prominent air within the venous system. Prominent stool throughout the colon. Air and debris throughout the small bowel loops. Questionable pneumatosis intestinalis. There is a small amount of ascites. No focal hepatic normality. The spleen is not enlarged. The gallbladder is distended. There are sludge within the gallbladder. No calcified stones. No inflammation about the pancreas. There is thickening to the left adrenal gland. Normal right adrenal gland. No renal stones. No hydronephrosis. No aortic aneurysm. There is a Velasquez catheter in the urinary bladder. IMPRESSION: 1.Large amount of free air in the abdomen and pelvis consistent with a bowel perforation with air in the venous system 2.Possible pneumatosis intestinalis 3.Constipation 4.Lower lobe pneumonia with atelectasis and pleural effusions 5.Distended gallbladder with sludge This report was discussed with Siria, the patient's nurse in the ICU, on 09/19/2018 at 6:35 PM and was readback. This exam was performed using automated exposure control, adjustment of mA or kV according to patient size, and/or use of iterative reconstruction technique. Electronically signed by Julian Dasilva 09/19/2018 6:38 PM
[2018-09-19] MEDS: NS 1,000 ML IV SCH ×2 (19:11→22:45)
--- NOTE | 2018-09-19 19:35 | GASTROENTEROLOGY CONSULTATION ---
DATE: 09/19/2018 REQUESTING PHYSICIAN: Dr. Ronen Lopez from ICU. REASON FOR CONSULTATION: GI bleed. HISTORY: This is a 62-year-old gentleman who was brought to the emergency room after the family found him unresponsive. The patient was brought to the emergency room where he was found to be in cardiac and respiratory failure. He was intubated, and resuscitation started with IV fluid and pressors. He also had an NG tube placed in his stomach. Copious amount of dark red aspirate was noted consistent with blood. Consultation was obtained for GI evaluation and treatment. The patient was and is unresponsive. He is intubated and is on ventilator. He just returned from the CT scan, and I saw the patient in ICU. Again, he is unresponsive and intubated on ventilator. Most of the information was obtained from the chart. PAST MEDICAL HISTORY: Unknown. PAST SURGICAL HISTORY: Unknown. FAMILY HISTORY: Could not be obtained. SOCIAL HISTORY: Could not be obtained. REVIEW OF SYSTEMS: Could not be obtained. MEDICATIONS: Unknown. ALLERGIES: Unknown. PHYSICAL EXAMINATION: General: Patient is lying in bed. He has just returned from the CT scan. Vital Signs: He is afebrile. Pulse is 108 per minute. Breathing at 24 on ventilator. His blood pressure is 76/53 on Juan-Synephrine and Levophed. Blood is being transfused. HEENT: Head is atraumatic, normocephalic. Eyes: Conjunctivae are pale. Sclerae anicteric. Pupils reactive to light. He has got harsh breath sounds bilaterally from the ventilator. I could not appreciate any rhonchi or crepitus. Heart: S2 audible. No murmur could be appreciated. Abdomen: Slightly distended. I could not elicit any pain or tenderness. Bowel sounds were not audible. Pedal edema noted. He has got a large decubitus ulcer around his anus in the perianal area. Superficial ulcers were noted. He has brown stool in the perianal area. No melena noted. Guaiac was positive. LABORATORIES: Reviewed. WBC 5.77, hemoglobin 10.1, hematocrit 32.1, MCV 101.9, platelets were 314,000. PT 13.9, INR 0.99, PTT was 30. Sodium 130, potassium 4.4, chloride 84, bicarb is 17, BUN is 47, creatinine 3.1. AST 110. ALT 55. Alkaline phosphatase 405. Total bilirubin is 1.09. Lactate level is 11.4. Toxicology screen shows positive for opiates, amphetamine, and cannabinoids. IMPRESSION: This is a 62-year-old gentleman who was brought to the ER unresponsive and was found by family unresponsive. Was found to be in respiratory and cardiogenic shock with evidence of renal insufficiency. He has metabolic acidosis. He has history of alcohol abuse. LFTs indicative of that. Now the CT scan of the abdomen shows perforated viscus with air in the abdomen and pelvis suggestive of acute abdomen most likely the cause of his cardiogenic as well as respiratory shock. From GI point of view, there is not much I need to add. He needs an urgent surgical consult for possible surgical intervention, but he has very poor prognosis. Further plans made according to the surgical consultation. cc: Sumit Denny MD
[2018-09-19] MEDS ORDERED: VERSED ONE (19:42)
[2018-09-19] MEDS ORDERED: DIPRIVAN 1% ONE (19:44)
[2018-09-19] MEDS ORDERED: SUFENTA ONE (19:51)
[2018-09-19] MEDS ORDERED: VANCOMYCIN 1 GM/NS 1 GM/250 ML IVPB IV ONE (20:01)
[2018-09-19] MEDS ORDERED: ZOSYN 3.375 GM in NS 50 ML IV SCH (20:15)
[2018-09-19] MEDS ORDERED: VANCOMYCIN IV PER PHARMACY MISC SCH (20:15)
[2018-09-19] MEDS ORDERED: SOLU-CORTEF IV SCH (20:15)
--- NOTE | 2018-09-19 20:30 | GENERAL SURGERY CONSULTATION ---
DATE: 09/19/2018 REASON FOR CONSULTATION: Free air. HISTORY OF PRESENT ILLNESS: This is a 62-year-old male with a 2 to 3-week history of constipation and abdominal pain, per his family. All history is by the family and ICU staff. He was found by his family in his recliner poorly responsive and very weak today. He was brought to the emergency room in extremis and septic shock. He has subsequently been found to be quite acidotic, in acute respiratory failure and acute kidney failure. He has been intubated. A central line has been placed. An NG tube has been placed, with dark bloody output. He is on 2 pressors, Juan-Synephrine and Levophed. He has a CT scan of his abdomen and pelvis showing extensive free air and portal venous gas, with possible pneumatosis intestinalis. This was reviewed by me. I also see widespread constipation and fecal impaction at the rectum. PAST MEDICAL HISTORY: Hypertension, constipation, gout, alcohol abuse. PAST SURGICAL HISTORY: Appendectomy. ALLERGIES: No known drug allergies. HOME MEDICATIONS: Unknown. FAMILY HISTORY: His father had a bowel perforation, with a colostomy for diverticulitis, I believe. REVIEW OF SYSTEMS: Unobtainable. SOCIAL HISTORY: He does drink alcohol, and otherwise is unknown. PHYSICAL EXAMINATION: Temperature 97.7 degrees, pulse 103, blood pressure 97/60, O2 saturation has been recorded as 100% an hour ago, currently not reading on the monitor. NG tube with dark bloody brown output. HEENT: Normocephalic, atraumatic. Pupils are equal, round and reactive. General: He has some nonpurposeful movements of his head and extremities. Neck supple. No thyromegaly. CV: Tachycardic and regular. Respiratory: Bilateral breath sounds. He is on the ventilator. GI: Soft, distended. Diffusely tender, as evidenced by wincing. No obvious organomegaly, mass or hernias appreciated. Extremities are very cool. Musculoskeletal: Again, moves his hands and feet non-purposefully. LABORATORY DATA: White blood cell count 5.7, hemoglobin 10.1, hematocrit 32, platelet count 314,000. Sodium 130, potassium 4.4, chloride 84, CO2 is 17, BUN 47, creatinine 3.2, glucose 92, AST 110, ALT 55, alkaline phosphatase 405, total bilirubin 1.1, albumin 2.4. Serum lactate 11.4. PH 7.23, pCO2 is 40, PaO2 is 114, bicarbonate 17, base deficit -10, lactate 10.8. Urinalysis unremarkable. Urine drug screen positive for opiates, amphetamines and cannabinoids. Serum alcohol level is interestingly negative. DIAGNOSTIC DATA: Abdominal and pelvis CT scan was reviewed by me. Of note, aside from what was described above in the HPI, there is also lower lobe pneumonia, atelectasis and pleural effusions, and a distended gallbladder with sludge. Head CT shows no hemorrhage. There is sinusitis. A chest x-ray shows stable endotracheal tube and NG tube in good position. No infiltrates. No pneumothorax or significant pleural effusion. ASSESSMENT AND PLAN: A 62-year-old male who is acidotic, in septic shock, likely secondary to an intraabdominal widespread ischemic event. I have spoken with the family regarding their wishes and the overall poor prognosis. They want to proceed with all lifesaving interventions including exploratory surgery, so we will proceed to the operating room emergently for exploratory laparotomy and possible bowel resection. They understand that if there is widespread infarction, this would be a nonsurvivable event. I did discuss other possible complications including injury to surrounding organs, myocardial infarction, on the operating room table or in the short perioperative period, and other imponderables. They understand and agree to proceed. cc: Timoteo Welch MD
[2018-09-19] MEDS ORDERED: NS 1,000 ML IV SCH (20:55)
[2018-09-19] MEDS ORDERED: ZYVOX 600 MG/D5W 600 MG/300 ML IVPB IV SCH (20:55)
[2018-09-19] MEDS ORDERED: DUONEB (A & A) INH SCH (20:55)
[2018-09-19] MEDS ORDERED: ZOFRAN IV PRN (20:55)
[2018-09-19] MEDS ORDERED: DUONEB (A & A) INH PRN (20:55)
[2018-09-19] MEDS ORDERED: ALBUMIN 25% 50 GM in NS 800 ML IV ONE (21:00)
[2018-09-19 21:24] LABS: HEMATOCRIT 37.2 % (42.0-52.0); HEMOGLOBIN 11.4 g/dL (14.0-18.0); MCH 32.5 PG (27-31); MCHC 30.6 g/dL (33-37); MPV 9.9 FL (7.4-10.4); RBC 3.51 XMIL (4.7-6.1); RDW 15.5 % (11.5-14.5); WBC 10.13 X1000 (4.8-10.8)
[2018-09-19 21:36] LABS: CALCIUM 9.3 mg/dL (8.8-10.2); CREATININE 3.2 mg/dL (0.7-1.2); POTASSIUM 4.7 mmol/L (3.5-5.1)
[2018-09-19 21:59] LABS: BE -15.7 mmoll (-3.0-3.0); BLOOD TYPE ARTERIAL; HCO3-(ACT) 12.6 mmoll (20.0-26.0); METHB 1.7 % (0.0-1.5); O2(CT) 14.3 mL/dL (15.0-23.0); O2HB 91.8 % (95.0-99.0); PCO2(98.6) 41 mmHg (35-45); PO2(98.6) 78 mmHg (60-100); SAMPLE BLOOD; SAO2 94.7 % (95.0-100.0); SRATE 12 BPM; TVOL 600 mL
[2018-09-19 22:00] LABS: ALLEN TEST NO; MODALITY VENTILATOR; pH(98.6) 7.11 (7.35-7.45)
--- NOTE | 2018-09-19 22:31 | OPERATIVE NOTE ---
PROCEDURE DATE: 09/19/2018 PREOPERATIVE DIAGNOSES: 1. Perforated viscus. 2. Septic shock. 3. Lactic acidosis. 4. Probable bowel infarction. POSTOPERATIVE DIAGNOSES: 1. Massive bowel infarction. 2. Septic shock. 3. Lactic acidosis. 4. Perforated viscus. PROCEDURE: Exploratory laparotomy. SURGEON: Timoteo Welch MD. ANESTHESIA: General. ESTIMATED BLOOD LOSS: 20 mL. COMPLICATIONS: None apparent. SPECIMENS: None. FINDINGS: He had extensive gangrenous necrosis of all of his small bowel and colon. There was a large volume of ascites with succus entericus. There was foul odor. All the bowel was necrotic. There was no visible pulse in the mesentery or peristalsis of the bowel. TECHNIQUE: The patient was brought to the operating room, placed supine on the table. He was prepped and draped in usual sterile fashion. He was already intubated. An incision was made from the epigastrium around the umbilicus with a knife and down through the fascia sharply. The peritoneum was entered sharply between hemostats and with scissors. As I explored the abdomen it quickly became apparent that this was intra-abdominal catastrophe. All the bowel was infarcted, including the colon. We did run the bowel from the terminal ileum back to the ligament of Treitz and there was no viable small bowel. I then proceeded to close as this is a non- survival event. The fascia was closed with a running #1 looped Maxon suture in 2 directions and skin clips. He was transferred back to the ICU in critical condition and I updated the family. cc: Timoteo Welch MD
[2018-09-19] MEDS ORDERED: MAXIPIME 1 GM in NS 50 ML IV SCH (23:00)
[2018-09-20] MEDS ORDERED: SODIUM BICARBONATE 8.4% IV PUSH ONE (02:20)
[2018-09-20] MEDS: NEO-SYNEPHRINE 50 MG in NS 250 ML IV SCH ×3 (03:01→10:21)
[2018-09-20] MEDS: LEVOPHED 8 MG in D5 1/2 NS 250 ML IV SCH ×2 (03:31→09:41)
[2018-09-20] MEDS: NS 1,000 ML IV SCH (06:14)
[2018-09-20] MEDS ORDERED: CALMOSEPTINE OINTMENT TOP PRN (06:41)
[2018-09-20 07:52] LABS: UR CREAT RANDOM 164.6 mg/dL (14-26); UR PROT RANDOM 45.8 mg/dL
--- NOTE | 2018-09-20 09:13 | NEPHROLOGY CONSULTATION ---
DATE: 09/20/2018 REASON FOR CONSULTATION: Acute kidney injury. CONSULTING PHYSICIAN: Dr. Medrano. HISTORY OF PRESENT ILLNESS: A 62-year-old gentleman with a 2 to 3 week history of constipation, abdominal pain. He would not come and be seen by medical. He was found later down and brought into the emergency room. He was acidotic, in acute respiratory failure, acute kidney injury. Workup indicated a question of probable bowel infarction. The patient was taken to surgery where he was found to have a necrotic bowel with massive bowel infarction and intra-abdominal catastrophe. This was nonsurgical. The patient has been transferred back to the ICU. Overnight, family has stopped antibiotics and other imaging and such. I understand there is to be a consultation with the family regarding this patient's plan of care. PAST MEDICAL HISTORY: Hypertension, constipation, gout, alcohol abuse. SURGICAL HISTORY: Appendectomy. ALLERGIES: Unknown. HOME MEDICATIONS: Unknown. FAMILY HISTORY: Bowel perforation in the father. REVIEW OF SYSTEMS: Unobtainable. SOCIAL HISTORY: Positive for alcohol. PHYSICAL EXAMINATION: Vital Signs: Temperature 98 degrees, pulse 100, respiratory rate 14, blood pressure 98/49. Intake 4.8 L; output 4.4 L. General: Acutely ill-appearing gentleman currently sedated, mechanically ventilated. He remains on 2 pressors. HEENT: Orally intubated. JOHNNY. Neck: Supple. No JVD. Cardiovascular: Tachycardic. Pulmonary: Mechanically ventilated. Abdomen: No bowel sounds. : Velasquez catheter, tea-colored urine. Extremities: Cool. He has mottling to the knees and feet. Integumentary: Skin is dry. LAB DATA: WBC of 10.1, hemoglobin 11.4. Sodium 132, potassium 4.7, CO2 15, creatinine 3.2 unchanged. Lactic acid 13.2. He had a urine sodium of 12. ASSESSMENT AND PLAN: Septic shock with catastrophic intra-abdominal ischemia. The patient went to surgery last night, was found to have a catastrophic event, was not a surgical candidate for any intervention. Family has been made aware. They are to make decision about making this patient comfort measures. They have already stopped his antibiotics and imaging this morning. We will be available for assistance if his care plan changes. Otherwise, we will sign off at this time. Dictated by MARCIA Zamora for Bhupendra Ang MD cc: Bhupendra Ang MD
[2018-09-20] MEDS ORDERED: NEO-SYNEPHRINE 100 MG in NS 500 ML IV SCH (12:00)
--- NOTE | 2018-09-20 12:35 | PROGRESS NOTE ---
DATE: 09/20/2018 SUBJECTIVE: The patient is intubated and unresponsive. OBJECTIVE: Vital signs: Vital signs are as follows: Temperature 100.3 degrees, pulse 92, respiratory rate is 18, blood pressure is 82/44, oxygen saturation 94%. HEENT: Atraumatic, normocephalic. Has an ET tube in place. Cardiovascular system: S1, S2. Respiratory system: Has evidence of good air entry bilaterally. Abdomen: Soft. Nontender. Extremities: No significant edema in the lower extremities. Central nervous system: No obvious focal deficit. The patient is unresponsive. LABORATORY DATA: Pending. ASSESSMENT: 1. Acute respiratory failure. 2. Septic shock. 3. Gastrointestinal bleed. 4. Acute renal failure. 5. Transaminitis. 6. Alcoholism. 7. Massive bowel infarction. PLAN: The patient has been made DNR by family. They do not want to terminate care at this time until after today for private reasons. The patient is only on pressors. Antibiotics have been discontinued. Prognosis poor. Continue patient on ventilator support. Family is expected to terminate care tomorrow. cc: Asher Medrano MD
[2018-09-20] MEDS ORDERED: DILAUDID IV PRN (12:45)
[2018-09-20] MEDS ORDERED: NS IV SCH (13:00)
[2018-09-20] MEDS ORDERED: LEVOPHED 16 MG in D5 1/2 NS 250 ML IV SCH (13:00)
[2018-09-20] MEDS ORDERED: PITRESSIN IV SCH (13:00)
[2018-09-20 14:43] VITALS: BP 71/44
--- NOTE | 2018-09-20 18:58 | CONSULTATION ---
DATE OF CONSULTATION: 09/20/2018 REQUESTING PROVIDER: MARCIA Bethea. REASON FOR CONSULTATION: Acute respiratory failure on ventilator, multiple pressors. HISTORY OF PRESENT ILLNESS: This is a 62-year-old male with an unknown past medical history. Per H&P, he apparently has had 2 to 3 weeks' history of constipation and abdominal pain. He was found by his family yesterday morning unresponsive with a whiskey bottle next to him. He was brought to the ER by EMS. In the ER, he was intubated and had a triple-lumen catheter placed on his left subclavian. He has been on Levophed, Juan-Synephrine and vasopressin drip. He also developed an acute upper GI bleeding with 2 units of PRBCs transfused. CT abdomen revealed a large amount of free air in the abdomen and pelvis consistent with a bowel perforation with air in the venous system, possible pneumatosis intestinalis, constipation, lower lobe pneumonia with atelectasis and pleural effusions, distended gallbladder with sludge. Dr. Welch was consulted and he did an exploratory laparotomy. 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 There was a large volume of ascites with succus entericus. There was a foul odor. All the bowel was necrotic. There was no visible pulse in the mesentery or peristalsis of the bowel. Dr. Welch thinks this is a non-survival event. The patient was transferred back to the ICU with intubation after surgery. At the time of my examination, patient was unresponsive. He is still on Levophed, Juan-Synephrine, and vasopressin. There is no family at the bedside. The nurse reports that she is working on contacting the patient's family members and getting the patient a DNR order. PAST MEDICAL/SURGICAL HISTORY: Unknown. SOCIAL HISTORY: Unknown. FAMILY HISTORY: Unknown. ALLERGIES: Unknown. REVIEW OF SYSTEMS: Unable to be obtained. PHYSICAL EXAMINATION: Vital Signs: Temperature 98.0, blood pressure 90/49, pulse 100, respiratory rate 14, oxygen saturation 93% on AC mechanical ventilator with spontaneous rate 12, FiO2 100%, tidal volume 600, and PEEP 5.0. HEENT: Atraumatic. Trachea midline. Mucosa pink and dry. The whole face appeared cyanotic. Respiratory: Lung expansion equal bilaterally. Auscultation revealed coarse breathing sounds throughout the whole lung jara. Cardiovascular: Regular rate and rhythm with sinus tachycardia. Gastrointestinal: The abdomen is firm and distended. Extremities: Bilateral lower extremity cyanosis, cold, and rigid. No pedal edema. Dorsalis pedis diminished bilaterally. Neurologic: The patient is obtunded. He is not on any sedation at this time. He is not responsive to any verbal or physical stimuli. ASSESSMENT: This is a 62-year-old male with unknown past medical history. He has been admitted to the ICU with acute respiratory failure secondary to alcohol as well as drug screen positive for benzodiazepines, amphetamines, and cannabinoids, sepsis, acute upper gastrointestinal bleeding, acute renal failure versus acute kidney injury on chronic kidney disease, and bowel perforation with massive bowel infarction. 1. Acute respiratory failure. 2. Septic shock. 3. Massive bowel infarction secondary to bowel perforation. PLAN: 1. Continue AC mechanical ventilator. 2. Prognosis is very poor. 3. Nurses is working on with patient's family to get a DNR order. 4. Continue multi pressors and Protonix drips. 5. Continue DVT prophylaxis. 6. Further recommendation pending hospital course. Thank you for the courtesy of this consult. Dictated by MARCIA Herman for Jazmin Anaya MD cc: MARCIA Herman MD [facility]
--- NOTE | 2018-10-15 13:32 | DISCHARGE SUMMARY ---
ADMISSION DATE: 09/19/2018 DISCHARGE DATE: 09/20/2018 FINAL DIAGNOSES: 1. Acute respiratory failure. 2. Massive bowel function. 3. Septic shock. 4. Gastrointestinal bleed. 5. Acute renal failure. 6. Transaminitis. 7. Alcoholism. HOSPITAL COURSE: Mr. Ronen Sarkar is a 62-year-old male who is believed to be an alcoholic. The patient was found unresponsive and was subsequently brought to the hospital. He required pressors. NG tube noted copious amount of what appeared to be coffee-ground vomitus. The patient was started on Protonix infusion. The patient was subsequently admitted to the intensive care unit. He had a CT scan of the abdomen and pelvis done which showed evidence of large amount of free air in the abdomen and pelvis consistent with bowel perforation with air in the vascular system. Surgery Team was notified. The patient was subsequently taken to surgery. The patient was noted to have extensive gangrenous necrosis of all of his small bowel. During past surgical notes, the patient's abdominal contents were explored and all the bowels were noted to be infarcted including the colon. The patient was subsequently closed up by the surgeon. The note was the patient has a non-survival event. The patient was made DNR by family. He subsequently on 09/20/2018. cc: Asher Medrano MD
== END 2018-09-20 14:36 | disposition expired | DRG 853 ==
LOC: ED 12:01 → ICU 16:55
PROVIDERS: ATTEND Internal Medicine
CPT/HCPCS: 31500; 36430; 51702; 70450; 71010; 71045; 74000; 74018; 74176; 80048; 80053; 80101; 80301; 80307; 80320; 80324; 80345; 80346; 80353; 80358; 80361; 80365; 81001; 82055; 82140; 82533; 82570; 82805; 83605; 83735; 83992; 84156; 84300; 84484; 85025; 85027; 85610; 85730; 86850; 86900; 86901; 86920; 87040; 87205; 93005; 94762; 96361; 96365; 96366; 96368; 96375; 96376; 99285; 99291; C9113; G0431; G0434; G0479; G0480; G6040; J0330; J0696; J1200; J2060; J2250; J2370; J3411; J7030; J7040; J7050; J7120; P9016; S0164